=== PATIENT | female | born 1945 | race Caucasian/White ===

== ENCOUNTER → 2017-06-16 | Outpatient (CLI) | payer MEDICARE, OTHER ==
[~2017-06-16] MED LIST: ASPI-1471 PO; ATOR40TA69 PO; AZIT500T47 PO; CALC200T27 PO; CETI-176 PO; ESTR0.5T16 PO; IBUP400T13 PO; LATA2.5D7 OP; LEVO25TA61 PO; LEVO50TA86 PO; MELO-207 PO; MULT-1097 PO; OMEG1CAP39 PO; RIFA300C50 PO; ZOLP-1 PO; [UNRECOGNIZED DRUG - CODE] PO
== END ==
LOC: LAB 09:00
PROVIDERS: ATTEND Emergency Medicine
DX: E78.5 Hyperlipidemia, unspecified (principal)
CPT/HCPCS: 36415; 82465; 83718; 84478

== ENCOUNTER → 2017-06-26 | Outpatient (CLI) | payer MEDICARE, OTHER | LOC: LAB 10:43 | PROVIDERS: ATTEND Emergency Medicine | DX: E03.9 Hypothyroidism, unspecified (principal); E83.52 Hypercalcemia; E78.5 Hyperlipidemia, unspecified | CPT/HCPCS: 36415; 82310; 83970; 84443; 86140 ==

== ENCOUNTER → 2017-07-27 | Outpatient (CLI) | payer MEDICARE, OTHER | LOC: LAB 10:46 | PROVIDERS: ATTEND Emergency Medicine | DX: E03.9 Hypothyroidism, unspecified (principal); R53.83 Other fatigue | CPT/HCPCS: 36415; 82550; 84436; 84443; 84481 ==

== ENCOUNTER → 2017-09-26 | Outpatient (CLI) | payer MEDICARE, OTHER ==
[2017-09-26 10:20] LABS: PLATELET COUNT, AUTOMATED 187 K/uL (150-450)
--- NOTE | 2017-09-26 12:22 | EKG ---
FACILITY: [facility] PATIENT NAME: VONNIE HERNANDEZ : [id number] MR: [id number] V: [id number] EXAM DATE: ORDERING PHYSICIAN: JONN LAUGHLIN TECHNOLOGIST: HAKAN ROBERSON Test Reason : DIZZINESS Blood Pressure : / mmHG Vent. Rate : 063 BPM Atrial Rate : 063 BPM P-R Int : 128 ms QRS Dur : 076 ms QT Int : 428 ms P-R-T Axes : 031 008 056 degrees QTc Int : 437 ms Normal sinus rhythm Normal ECG No previous ECGs available Confirmed by JONN LAUGHLIN ([id number]) on 09/27/2017 3:41:24 PM Referred By: Confirmed By:JONN LAUGHLIN
== END ==
LOC: LAB 09:59
PROVIDERS: ATTEND Emergency Medicine
DX: R42 Dizziness and giddiness (principal); E16.2 Hypoglycemia, unspecified; E03.9 Hypothyroidism, unspecified
CPT/HCPCS: 82040; 82247; 82310; 82374; 82435; 82565; 82947; 83525; 84075; 84132; 84155; 84295; 84439; 84443; 84450; 84460; 84481; 84484; 84520; 85025; 85379

== ENCOUNTER → 2017-10-05 | Outpatient (CLI) | payer MEDICARE, OTHER | LOC: LAB 09:40 | PROVIDERS: ATTEND Emergency Medicine | DX: R94.6 Abnormal results of thyroid function studies (principal) | CPT/HCPCS: 36415; 84443 ==

== ENCOUNTER → 2017-10-28 | Outpatient (CLI) | payer MEDICARE, OTHER | LOC: RESP 20:59 | PROVIDERS: ATTEND Emergency Medicine | DX: G47.33 Obstructive sleep apnea (adult) (pediatric) (principal); G47.61 Periodic limb movement disorder; G47.36 Sleep related hypoventilation in conditions classified elsewhere ==

== ENCOUNTER → 2017-11-09 | Outpatient (CLI) | payer MEDICARE, OTHER | LOC: LAB 09:22 | PROVIDERS: ATTEND Emergency Medicine | DX: E05.90 Thyrotoxicosis, unspecified without thyrotoxic crisis or storm (principal) | CPT/HCPCS: 36415; 84439; 84443; 84481; 86140; 86376; 86800 ==

== ENCOUNTER → 2017-11-15 | Outpatient (CLI) | payer MEDICARE, OTHER | LOC: LAB 14:32 | PROVIDERS: ATTEND Emergency Medicine | DX: G47.61 Periodic limb movement disorder (principal) | CPT/HCPCS: 36415; 82607; 82746 ==

== ENCOUNTER → 2017-11-29 | Outpatient (CLI) | payer MEDICARE, OTHER | LOC: LAB 12:14 | PROVIDERS: ATTEND Emergency Medicine | DX: E03.9 Hypothyroidism, unspecified (principal) | CPT/HCPCS: 36415; 84443 ==

== ENCOUNTER → 2017-12-08 | Outpatient (CLI) | payer MEDICARE, OTHER | LOC: RESP 19:57 | PROVIDERS: ATTEND Emergency Medicine | DX: G47.33 Obstructive sleep apnea (adult) (pediatric) (principal); G47.61 Periodic limb movement disorder ==

== ENCOUNTER → 2018-01-04 | Outpatient (CLI) | payer MEDICARE, OTHER ==
--- NOTE | 2018-01-07 13:37 | RADIOLOGY IMAGING REPORT ---
[place] [facility] [place] NAME: Zainab Griggs : 1945 MR: [id number] V: [id number] EXAM DATE: [id number] ORDERING PHYSICIAN: JONN LAUGHLIN TECHNOLOGIST: Location: [facility] Patient: Zainab Griggs : 1945 Visit/Account:[id number] Date of Sevice: 01/04/2018 EXAMINATION: Single Isotope SPECT Imaging with Exercise and Gated SPECT Imaging DATE OF EXAMINATION: January 04, 2018 DATE OF INTERPRETATION: January 07, 2018 REQUESTING PHYSICIAN: JONN LAUGHLIN INDICATION: The patient is a 72-year-old female evaluated for chest pain. PROCEDURE: After informed consent the patient received an intravenous injection of 12.4 mCi of Tc-9 9m sestamibi followed at the appropriate time interval by rest imaging. The patient then exercised a ccording to the standard Tim protocol for 5 minutes achieving 7 METS. Resting heart rate was 35 bp m with a peak heart rate of 139 bpm which is 92 % of maximal predicted heart rate for age. Blood pr essure at rest was 123 / 77; blood pressure during exercise was 159 / 72. There was no chest pain du ring exercise. Exercise was discontinued because of fatigue. Baseline EKG demonstrates normal sinus rhythm. There were no EKG changes of ischemia at peak exercise. Approximately one minute and 30 se conds prior to the termination of exercise, the patient received an intravenous injection of 29.2 mCi of Tc-99m sestamibi followed by stress imaging. RAW DATA: Examination of the summed raw data revealed a good quality study. MYOCARDIAL PERFUSION: The tomographic images demonstrate a mild decrease in myocardial perfusion tra cer uptake in the apical anterior wall seen on both stress and rest images that resolves with prone i maging. No reversible defect noted. GATED IMAGES: The gated images demonstrate an ejection fraction greater than 70% with no wall motion abnormality IMPRESSION: 1. Normal myocardial perfusion scan with no evidence of ischemia. The mild focal fixed defect in the apical anterior wall is likely breast attenuation artifact 2. Normal myocardial perfusion scan. 3. Normal LV systolic function; LVEF greater than 70%. 4. Based on the results of this exam, the patient appears to be at low risk for future cardiovascular events. Report Dictated By: Angela Marte at 01/07/2018 1:32 PM Report E-Signed By: Angela Marte at 01/07/2018 1:34 PM WSN:[id number]
== END ==
LOC: NUC 02:03
PROVIDERS: ATTEND Emergency Medicine
DX: R07.89 Other chest pain (principal)
CPT/HCPCS: 78452; 93017; A9500

== ENCOUNTER → 2018-03-01 | Outpatient (CLI) | payer MEDICARE, OTHER ==
[~2018-03-01] MED LIST changes: +PRAM0.1225 PO; +ROPI0.2527 PO
== END ==
LOC: LAB 13:46
PROVIDERS: ATTEND Emergency Medicine
DX: E03.9 Hypothyroidism, unspecified (principal)
CPT/HCPCS: 36415; 84443

== ENCOUNTER → 2018-03-16 | Outpatient (CLI) | payer MEDICARE, OTHER ==
[2018-03-16 09:10] LABS: PLATELET COUNT, AUTOMATED 197 K/uL (150-450)
== END ==
LOC: LAB 08:52
PROVIDERS: ATTEND Orthopaedic Surgery
DX: Z01.812 Encounter for preprocedural laboratory examination (principal); M51.36 Other intervertebral disc degeneration, lumbar region; M43.16 Spondylolisthesis, lumbar region; E03.9 Hypothyroidism, unspecified; R51 Headache; Z98.890 Other specified postprocedural states; Z86.711 Personal history of pulmonary embolism
CPT/HCPCS: 36415; 82040; 82247; 82310; 82374; 82435; 82565; 82947; 84075; 84132; 84155; 84295; 84443; 84450; 84460; 84520; 85025

== ENCOUNTER 2018-03-28 01:46 | Inpatient (IN) | payer MEDICARE, OTHER ==
[~2018-03-28] VITALS: Ht 162.6 cm; Wt 53.1 kg
[2018-03-28] VITALS (17 sets, daily range): BP systolic 91–113; BP diastolic 49–75
[2018-03-28] MEDS ORDERED: PREGABALIN 75 MG CAPSULE PO ONE (06:00)
[2018-03-28] MEDS ORDERED: FAMOTIDINE 20 MG TAB PO ONE (06:00)
[2018-03-28] MEDS ORDERED: ceFAZolin(*) 1 GM VIAL 1 GM in NS(*) 0.9% 100 ML ADDVANT BAG 100 ML IVPB ONE (06:00)
[2018-03-28] MEDS ORDERED: LIDOCAINE/SOD BICARB 8.4% SYR ID ONE (06:00)
[2018-03-28] MEDS ORDERED: ACETAMINOPHEN 500 MG TAB PO ONE (06:00)
[2018-03-28] MEDS ORDERED: MIDAZOLAM 2 MG/2 ML VIAL IVP PRN (06:00)
[2018-03-28] MEDS ORDERED: NORMOSOL R SOLN(*) 1000 ML BAG 1,000 ML IV PRN (06:00)
[2018-03-28] MEDS ORDERED: THROMBIN (BOVINE) 20,000 UNIT VIAL ONE (06:29)
[2018-03-28] MEDS ORDERED: ROPIVACAINE 0.2% 20 ML VIAL ONE (06:29)
[2018-03-28] MEDS ORDERED: THROMBIN TOP SOLN 5000INTLU VL ONE (06:35)
[2018-03-28] MEDS ORDERED: fentaNYL CITR 250 MCG/5 ML AMP ONE (06:36)
[2018-03-28] MEDS ORDERED: ROCURONIUM BROM 10 MG/ML 10 ML ONE (06:36)
[2018-03-28] MEDS ORDERED: ONDANSETRON 4 MG/2 ML VIAL ONE (06:36)
[2018-03-28] MEDS ORDERED: DEXAMETHASONE SOD 4 MG/ML VIAL ONE (06:36)
[2018-03-28] MEDS ORDERED: LIDOCAINE MPF 1% 5 ML VIAL ONE (06:36)
[2018-03-28] MEDS ORDERED: SUGAMMADEX SOD 200 MG/2 ML SDV ONE (06:36)
[2018-03-28] MEDS ORDERED: PROPOFOL EMUL(*) 10MG/ML 20 ML 20 ML ONE (06:36)
[2018-03-28] MEDS ORDERED: PROPOFOL(*)1000 MG/100 ML VIAL 100 ML ONE (06:37)
[2018-03-28] MEDS ORDERED: KETAMINE HCL-NS 50 MG/5 ML SYR ONE (06:43)
--- NOTE | 2018-03-28 09:44 | RADIOLOGY IMAGING REPORT ---
[place] [facility] [place] NAME: Zainab Griggs : 1945 MR: [id number] V: [id number] EXAM DATE: ORDERING PHYSICIAN: GEREMIAS JOHNSON TECHNOLOGIST: Location: [facility] Patient: Zainab Griggs : 1945 Visit/Account:[id number] Date of Sevice: 03/28/2018 Study: LUMBAR SPINE 1 VIEW Indication: Intraoperative imaging Comparison study: None available Findings: 3 intraoperative images of the lumbar spine and lateral projection demonstrates sequential placement of posterior fusion hardware at the L4-5 level. IMPRESSION: Intraoperative images demonstrating posterior L4-5 fusion. Report Dictated By: Tim Mccain at 03/28/2018 9:38 AM Report E-Signed By: Tim Mccain at 03/28/2018 9:39 AM WSN:[id number]
[2018-03-28] MEDS ORDERED: diphenhydrAMINE 25 MG CAP PO PRN (09:55)
[2018-03-28] MEDS ORDERED: BENZOCAINE/MENTHOL 1 EACH LOZG PO PRN (09:55)
[2018-03-28] MEDS ORDERED: ACETAMINOPHEN 500 MG TAB PO PRN (09:55)
[2018-03-28] MEDS ORDERED: DIAZEPAM 5 MG TAB PO PRN (09:55)
[2018-03-28] MEDS ORDERED: ONDANSETRON 4 MG/2 ML VIAL IVP PRN (09:55)
[2018-03-28] MEDS ORDERED: HYDROmorphone HCL 2 MG/ML SDV IVP PRN (09:55)
[2018-03-28] MEDS ORDERED: LR(*) 1000 ML BAG 1,000 ML IV PRN (09:55)
[2018-03-28] MEDS ORDERED: FLUSH 10 ML SYR IVP PRN (09:55)
[2018-03-28] MEDS ORDERED: BISACODYL 10 MG SUPP PR PRN (09:55)
[2018-03-28] MEDS ORDERED: MAGNESIUM HYDROXIDE* 30ML UDCP PO PRN (09:55)
[2018-03-28] MEDS ORDERED: ACETAMINOPHEN(*)1000 MG/100 ML 100 ML IVPB PRN (09:55)
[2018-03-28] MEDS ORDERED: fentaNYL CITR 100 MCG/2 ML AMP ONE (10:00)
[2018-03-28] MEDS: oxyCODONE HCL 5 MG CAP PO PRN ×2 (11:37→22:53)
--- NOTE | 2018-03-28 11:42 | Hospitalist Consultation ---
History of Present Illness Requesting Physician Dr. Chaudhry Reason for Consult Medical Management Chief Complaint s/p lumbar fusion History of Present Illness She was admitted s/p lumbar fusion. It is reported the surgery went well and without complication. History Problems: (1) Hyperlipidemia Status: Chronic (2) Obstructive sleep apnea-hypopnea syndrome Status: Chronic Home Meds Active Scripts Estradiol (ESTRADIOL) 0.5 Mg Tablet, 1 TAB PO QHS, #90 TAB 3 Refills Prov:JONN LAUGHLIN MD 03/02/18 Atorvastatin Calcium (ATORVASTATIN CALCIUM) 40 Mg Tablet, 1 TAB PO DAILY, #90 TAB 3 Refills Prov:JONN LAUGHLIN MD 03/02/18 Reported Medications Calcium Citrate/Vitamin D3 (CALCIUM CITRATE WITH D TABLET) 1 Each Tablet, 1 EACH PO BID 02/23/17 Latanoprost (LATANOPROST) 2.5 Ml Drops, 1 GTT OP QHS 02/15/17 Discontinued Reported Medications Cetirizine Hcl (ZYRTEC) 10 Mg Tablet, 1 TAB PO DAILY, TAB 02/15/17 Rifampin (RIFAMPIN) 300 Mg Capsule, 2 CAP PO DAILY, CAPSULE 02/15/17 Multivitamin (ONE DAILY) 1 Each Tablet, 1 TAB PO 02/15/[address] [place]-3S/Dha/Epa/Fish Oil/D3 (FISH OIL + D3 SOFTGEL) 1 Each Capsule, 1 CAPSULE PO, CAPSULE 02/15/17 Aspirin (ASPIR 81) 81 Mg Tablet.dr, 1 TAB PO QDAY, TAB 02/15/17 Discontinued Scripts Ropinirole Hcl (REQUIP) 0.25 Mg Tablet, 0.25 MG PO QHS, #30 TAB 0 Refills Prov:JONN LAUGHLIN MD 02/08/18 Azithromycin (AZITHROMYCIN) 500 Mg Tablet, 1 TAB PO ONCE, #1 TAB 500 mg alternating with 750 mg Prov:JONN LAUGHLIN MD 05/25/17 Meloxicam (MELOXICAM) 15 Mg Tablet, 15 MG PO QDAY, #14 TAB Prov:JONN LAUGHLIN MD 05/25/17 Zolpidem Tartrate (AMBIEN) 5 Mg Tablet, 1 TAB PO QHS PRN for prn, #90 TAB 3 Refills Prov:JONN LAUGHLIN MD 03/09/17 Allergies: Coded Allergies: bee venom protein (honey bee) (Verified Allergy, Severe, anaphylaxis, 03/27/18) latex (Verified Allergy, Intermediate, contact dermatitis, 03/27/18) codeine (Verified Allergy, Mild, nausea, headache, 03/27/18) Patient History: FH: Parkinson's disease FATHER, , Age:75 FH: atrial fibrillation MOTHER FH: rheumatoid arthritis Sister Sister Hx Smoking: No Smoking Status: Never Smoker Caffeine Intake: Tea Caffeine/Cups Per Day: 1 STEFANO LATTE/DAY, 1 C. TEA/DAY Hx Alcohol Use: No Hx Substance Use Disorder: No Social Drug Use: Never History of IV Drug Use: No Review of Systems All Systems Reviewed/Normal: Yes, Except as Noted Exam Vital Signs Vital Signs Date Time Temp Pulse Resp B/P (MAP) Pulse Ox O2 Delivery O2 Flow Rate FiO2 03/28/18 11:04 56 14 98 03/28/18 06:30 97.1 101/75 (84) Room Air General Appearance: Alert, Awake, No Acute Distress, Afebrile Neuro: No Gross deficits Cardiovascular: Regular Rate and Rhythm Respiratory: No Respiratory Distress, Clear to Auscultation Psych: Alert & Oriented X3, Appropriate Mood & Affect Assessment and Plan Problems: (1) S/P lumbar fusion Status: Acute Assessment & Plan: Followed by Dr. Chaudhry. (2) Hyperlipidemia Status: Chronic Assessment & Plan: She is on chronic treatment with Atorvastatin. Continue. (3) Obstructive sleep apnea-hypopnea syndrome Status: Chronic Assessment & Plan: She is on chronic treatment with CPAP. She did bring her machine to use during admission. Venous Thromboembolism Antithrombotics Is Pt On Any Antithrombotics?: No COLEEN ZUNIGA Mar 28, 2018 11:42
[2018-03-28] MEDS: ceFAZolin(*) 2GM/D5W 50ML 50 ML IVPB SCH ×2 (14:24→22:41)
[2018-03-28] MEDS: APAP/HYDROCODONE 325/5 TAB PO PRN ×2 (14:31→19:37)
--- NOTE | 2018-03-28 17:46 | OPERATIVE REPORT 1 ---
EVENT DATE: March 28, 2018 SURGEON: Dante Chaudhry MD ANESTHESIOLOGIST: Nicholas Carreon MD ANESTHESIA: General endotracheal anesthesia. LEARNING AND DEVELOPMENT ADMINISTRATOR: Anthony Franco PA-C PREOPERATIVE DIAGNOSES 1. L4-L5 spinal stenosis with L4-L5 spondylolisthesis. 2. Right greater than left radiculopathy. 3. Neurogenic claudication. POSTOPERATIVE DIAGNOSES 1. L4-L5 spinal stenosis with L4-L5 spondylolisthesis. 2. Right greater than left radiculopathy. 3. Neurogenic claudication. PROCEDURES PERFORMED 1. L3-L4 laminectomy. 2. L4-L5 posterolateral instrumented fusion. Of note, this is a revision case increasing the complexity of the surgery. INTRAVENOUS FLUIDS 1500 mL ESTIMATED BLOOD LOSS 120 mL IMPLANTS USED Pedicle screws 6.5 mm x 45 mm times four from [employer], 40 mm connecting rods from [employer] times two, and locking caps from [employer] times four. SPECIMENS None. DRAINS None. COMPLICATIONS None. DISPOSITION Post-anesthesia care unit. INDICATIONS FOR SURGERY Ms. Griggs is a 73-year-old female who presented to my clinic with right greater than left radiating pain, numbness, and tingling in primarily an L5 distribution. She tried physical therapy, medications, and injections with no improvement. Her physical examination was normal with respect to strength, sensation, etc. Her imaging studies showed right greater than left lateral recess narrowing secondary to facet hypertrophy and ligamentum flavum thickening. Secondary to ongoing symptoms and failure of nonsurgical care, Ms. Griggs was offered and elected to undergo L4-L5 laminectomy and posterolateral instrumented fusion. Prior to surgery, I explained in detail to the patient the possible risks of surgery. These risks include bleeding, infection, damage to surrounding structures, persistent and/or worsening pain, spinal fluid leak, meningitis, need for further surgery, failure of instrumentation, , blindness, sexual dysfunction, autonomic nervous system dysfunction, as well as other unforeseen medical and surgical complications. An ing schedule. At the conclusion of the procedure, sponge and needle counts were correct times two. DESCRIPTION OF PROCEDURE On the date of surgery, the patient was met in the preoperative hold area, and all questions were answered. Her operative site was identified and marked by myself. After succumbing to anesthesia, the patient was positioned in the prone position on a Vern table. All bony protuberances and soft tissues were well padded in the standard fashion. Care was taken to maintain appropriate perfusion pressures during anesthesia. Preoperative antibiotics were administered according to the appropriate timing schedule. At the conclusion of the procedure, sponge and needle counts were correct times two. A final timeout was undertaken by members of the operating team to confirm correct patient, correct levels, and correct surgery. The patient was prepped and draped in the standard sterile orthopedic fashion, and a vertical midline incision was made overlying intended surgical levels. Sharp dissection was carried out down to the posterior elements, and soft tissues were elevated off the posterior elements in a subperiosteal manner. A lateral radiograph was taken with Shaista clamp attached to the L4 spinous process to confirm appropriate level. Self-retaining retractors were placed and distracted. Starting points for pedicle screws were identified by dissecting down along the lamina, up the pars interarticularis, and out to the transverse processes of both L4 and L5 bilaterally. We exposed the transverse processes out to the tips at both levels and then packed thrombin-soaked sponges into the lateral gutters. Leksell rongeur was used to remove the spinous process of L4. The lamina was thinned down the midline with the Leksell rongeur. A Eller curette was used to undermine the superior insertion of the ligamentum flavum from the inferior aspect of the L4 lamina. Once the canal was entered, a Gabrielle elevator was used to separate dural adhesions from surrounding bone and soft tissue prior to the use of a Kerrison punch. A #4 Kerrison punch was used to perform a midline decompression. We then performed bilateral lateral recess decompressions with #3 and #4 Kerrisons. A significant amount of scar tissue was found on the right side, and this was teased away from the surrounding bone with the [place] elevator and allowed us to perform significant undercutting to the right-sided L4-L5 facet joint. A significant amount of thickened ligamentum flavum and scar tissue was removed, and ultimately we had excellent decompression in the lateral recesses as well as the foramina for the L5 nerve root. Hemostasis was obtained, and attention was then turned to the fusion portion of the procedure. Starting points for pedicle screws were identified bilaterally at L4 and L5. Starting points were noted to be at approximately the intersection of the pars interarticularis, the midpoint of the transverse process, and the lateral aspect of the superior articular process at each level. A 5 mm high-speed alicia was used to decorticate the overlying bone, and then a Lenke-type probe was used to advance against resistance through the pedicle and into the vertebral body. A ball-tip feeler was used to palpate the pedicle superiorly, inferiorly, medially, laterally, as well as distally to confirm absence of bony breaching. Approximately length pedicle screws, in this case 45 mm long x 6.5 mm in diameter were then placed through the pedicles. Neurophysiologic testing was used to confirm absence of bony breaching in all screws tested over 30 mA. Connecting rods 40 mm were selected and placed within the t[place]ips, and then locking caps were applied. The caps were tightened and then finally tightened using the torque-limiting device. A high-speed alicia was used to decorticate the transverse processes at L4 and L5 bilaterally. A combination of local bone that had been run through a bone mill and cancellous allograft chips were mixed and packed into these lateral gutters along the transverse processes of L4 and L5. Prior to this, we irrigated the wound with copious sterile saline solution. Once we had applied all the bone graft, a lateral radiograph was obtained to confirm appropriate levels, and the instrumentation was found to be in excellent position. The wound was then closed in layers using interrupted sutures for the deep fascia, inverted interrupted sutures for the subcutaneous tissue, and then a running subcuticular skin stitch. Sponge and needle counts were correct times two. POSTOPERATIVE CARE PLAN Ms. Griggs will remain in the hospital at least overnight and will be discharged home once she meets discharge criteria. She will followup with me in my clinic two weeks postoperatively for wound check and examination. ROSIBEL
[2018-03-28] MEDS: DOCUSATE SODIUM 100 MG CAP PO SCH (19:37)
[2018-03-29 02:15] VITALS: BP 95/48
[2018-03-29] MEDS: APAP/HYDROCODONE 325/5 TAB PO PRN ×3 (02:20→10:53)
[2018-03-29] MEDS: ceFAZolin(*) 2GM/D5W 50ML 50 ML IVPB SCH (06:31)
[2018-03-29] MEDS ORDERED: LOR5/325 PO (07:08)
[2018-03-29] MEDS ORDERED: DIA5 PO (07:09)
[2018-03-29] MEDS ORDERED: DOCU240C84 PO (07:09)
--- NOTE | 2018-03-29 08:37 | RADIOLOGY IMAGING REPORT ---
FACILITY: [facility] PATIENT NAME: Zainab Griggs : 1945 MR: [id number] V: [id number] EXAM DATE: ORDERING PHYSICIAN: GEREMIAS JOHNSON TECHNOLOGIST: Location: [facility] Patient: Zainab Griggs : 1945 Visit/Account:[id number] Date of Sevice: 03/29/2018 Lumbar spine Indication: Postop L4-L5 fusion. Comparison: Intraoperative radiographs from 03/28/2018. Lumbar radiograph dated February 16, 2018.. FINDINGS: 2 views of the lumbar spine were obtained. There are 5 lumbar type vertebral bodies. There is no acute osseous or acute alignment abnormality. Placement of L4-L5 posterior fusion hardware without visualized hardware complication. There is appro ximately 3-4 mm anterolisthesis of L4 on L5 which is not significantly changed since the prior preope rative radiograph. No additional spondylolisthesis identified. The vertebral body heights appear well-maintained. Mild levoscoliosis. Mild multilevel degenerative disc disease. IMPRESSION: 1. Postoperative changes from L4-L5 posterior fusion hardware without visualized hardware complicatio n or acute abnormality. 2. Grade 1 anterolisthesis of L4 on L5 which is not significantly changed since preoperative radiogra ph Report Dictated By: Jimy Ramirez MD at 03/29/2018 8:25 AM Report E-Signed By: Jimy Ramirez MD at 03/29/2018 8:31 AM WSN:[id number]
[2018-03-29 08:46] VITALS: BP 104/46
[2018-03-29] MEDS: DOCUSATE SODIUM 100 MG CAP PO SCH (08:51)
[2018-03-29] MEDS ORDERED: ATORVASTATIN 40 MG TAB PO SCH (09:00)
[2018-03-29 10:16] VITALS: Ht 162.6 cm; Wt 53.1 kg
--- NOTE | 2018-03-29 11:25 | Hospitalist Progress Note ---
Subjective Progress Notes Subjective She has no complaints this morning. She had no acute events overnight. Patient Complains of: Cardiovascular: No: Chest Pain Respiratory: No: Shortness of Breath Physical Exam Vital Signs Date Time Temp Pulse Resp B/P (MAP) Pulse Ox O2 Delivery O2 Flow Rate FiO2 03/29/18 08:48 91 Room Air 03/29/18 08:46 98.6 59 12 104/46 (65) 03/28/18 22:54 1.0 03/28/18 11:04 Intake and Output 03/29/18 06:59 Intake Total 2105 ml Balance 2105 ml Intake Oral 400 ml IV Total 1705 ml # Voids 4 General Appearance: Alert, Awake, No Acute Distress, Afebrile Neuro: No Gross deficits Cardiovascular: Regular Rate and Rhythm Respiratory: No Respiratory Distress, Clear to Auscultation GI: Soft and Non-Tender Psych: Alert & Oriented X3, Appropriate Mood & Affect Assessment and Plan Problems: (1) S/P lumbar fusion Status: Acute Assessment & Plan: Followed by Dr. Chaudhry. (2) Hyperlipidemia Status: Chronic Assessment & Plan: She is on chronic treatment with Atorvastatin. Continue. (3) Obstructive sleep apnea-hypopnea syndrome Status: Chronic Assessment & Plan: She is on chronic treatment with CPAP. She did bring her machine to use during admission. Exam Sepsis Risk: No Definite Risk COLEEN ZUNIGA [employer]IOR [employer]ELOPER Mar 29, 2018 11:25
== END 2018-03-29 11:25 | disposition home or self-care (01) | DRG 460 ==
LOC: OR 01:46 → MED 11:04
PROVIDERS: ADMIT Orthopaedic Surgery; ATTEND Orthopaedic Surgery
PROC: 01NB0ZZ Release Lumbar Nerve, Open Approach (ICD-10-PCS; 2018-03-28)
PROC: 0SG0071 Fusion of Lumbar Vertebral Joint with Autologous Tissue Substitute, Posterior Approach, Posterior Column, Open Approach (ICD-10-PCS; principal; 2018-03-28 07:15)
DX: M48.062 Spinal stenosis, lumbar region with neurogenic claudication (principal); M43.16 Spondylolisthesis, lumbar region; M54.16 Radiculopathy, lumbar region; I48.2 Chronic atrial fibrillation; G20 Parkinson's disease; K21.9 Gastro-esophageal reflux disease without esophagitis; E03.9 Hypothyroidism, unspecified; I10 Essential (primary) hypertension; E78.5 Hyperlipidemia, unspecified; G47.33 Obstructive sleep apnea (adult) (pediatric); Z88.8 Allergy status to other drugs, medicaments and biological substances; Z91.040 Latex allergy status; Z90.710 Acquired absence of both cervix and uterus
CPT/HCPCS: 36415; 72020; 72100; 86850; 86900; 86901; 97161; C1713; J0690; J1100; J2001; J2250; J2405; J2704; J2795; J3010; J3490; J7050